=== PATIENT | male | born 1975 | race Caucasian/White ===

== ENCOUNTER → 2016-07-29 | Outpatient (CLI) | payer BC, OTHER ==
--- NOTE | 2016-07-29 16:24 | RAD ---
MR of the left wrist HISTORY: Left wrist pain after twisting injury. Popping. TECHNIQUE: Routine multiplanar sequences are obtained. FINDINGS: [id number] motion degradation on the exam. Deep tear of the central disc of the triangular fibrocartilage near the radial attachment. This involves at least two thirds of the undersurface, without definite full extension through its distal aspect. Extensor carpi ulnaris tendon demonstrates mild tendinosis signal without visible tear. Slight medial subluxation of the tendon. Mild fluid surrounding the first extensor compartment tendons. Mild thickening and internal signal within the abductor pollicis longus tendon. The flexor tendons appear intact. Median nerve unremarkable. High-grade tear/rupture of the scapholunate ligament. There is widening of the scapholunate distance which measures about 6 mm. Mild dorsal tilt of the lunate bone. There is a small lesion within the distal ulna, without aggressive features probably a small bone cyst. No evidence of an acute fracture. IMPRESSION: 1. Focal deep tear involving the undersurface of the triangle fibrocartilage near the radial attachment. 2. Scapholunate ligament tear with dissociation. 3. Mild extensor carpi ulnaris tendinosis. 4. First extensor compartment tendinosis or tenosynovitis (DeQuervain's tenosynovitis). Electronically signed by: David Case MD (07/29/2016 4:21 PM)
== END | disposition home or self-care (01) ==
LOC: MRI 12:41
PROVIDERS: ATTEND Internal Medicine
DX: S69.92XA Unspecified injury of left wrist, hand and finger(s), initial encounter (principal); X58.XXXA Exposure to other specified factors, initial encounter; Y93.89 Activity, other specified; Y92.89 Other specified places as the place of occurrence of the external cause; Y99.8 Other external cause status
CPT/HCPCS: 73221